=== PATIENT | male | born 1965 | race Caucasian/White ===

== ENCOUNTER → 2018-08-28 | Outpatient (CLI) | payer BC ==
[~2018-08-28] MED LIST: ATOR20TA22 PO; DEXT25CP; FLU60VIA41 IM; FLUO-201 PO; NONE PER PATIENT; OLAN10TA25 PO; OMEP-114 PO
[2018-08-28 13:40] LABS: PLATELET COUNT, AUTOMATED 374 K/uL (150-450)
== END ==
LOC: LAB 13:13
PROVIDERS: ATTEND Emergency Medicine
DX: E78.5 Hyperlipidemia, unspecified (principal); Z12.5 Encounter for screening for malignant neoplasm of prostate; Z72.9 Problem related to lifestyle, unspecified
CPT/HCPCS: 36415; 82040; 82247; 82310; 82374; 82435; 82565; 82947; 83036; 84075; 84132; 84153; 84155; 84295; 84450; 84460; 84520; 85007; 85027; 86803

== ENCOUNTER → 2019-02-19 | Outpatient (CLI) | payer BC ==
[~2019-02-19] MED LIST changes: +DIPH0.5S2 IM; +LISD10CA PO; +LISD30PT PO; +LISD40PT PO
== END ==
LOC: LAB 08:56
PROVIDERS: ATTEND Emergency Medicine
DX: E78.5 Hyperlipidemia, unspecified (principal); R73.03 Prediabetes; R53.83 Other fatigue
CPT/HCPCS: 36415; 82465; 83036; 83718; 84443; 84478

== ENCOUNTER → 2019-02-20 | Outpatient (CLI) | payer BC ==
--- NOTE | 2019-02-20 09:39 | RADIOLOGY IMAGING REPORT ---
FACILITY: [facility] PATIENT NAME: Kurt Miller : 1965 MR: [id number] V: [id number] EXAM DATE: ORDERING PHYSICIAN: BUD BETTENCOURT TECHNOLOGIST: Location: [facility] [place] Patient: Kurt Miller : 1965 Visit/Account:[id number] Date of Sevice: 02/20/2019 2 VIEWS CHEST INDICATION: Fatigue COMPARISON: None available FINDINGS: Heart size within normal limits. There is no focal infiltrate or lobar consolidation. There is no pneumothorax or pleural effusion. Mild degenerative changes within the thoracic spine. IMPRESSION: 1. No acute cardiopulmonary process. Report Dictated By: Ed Barr MD at 02/20/2019 9:34 AM Report E-Signed By: Ed Barr MD at 02/20/2019 9:35 AM WSN:[email or web address]
== END ==
LOC: LAB 08:44
PROVIDERS: ATTEND Emergency Medicine
DX: R53.83 Other fatigue (principal)
CPT/HCPCS: 71046; 81001